=== PATIENT | female | born 1970 | race Caucasian/White ===

== ENCOUNTER 2023-11-29 18:40 | Emergency (ER) | payer BC ==
[~2023-11-29] VITALS: Ht 160 cm; Wt 61.2 kg
[2023-11-29] MEDS ORDERED: NEOMY/BACITRA/POLYMYXIN B OINT UD PACKET TP ONE (19:30)
[2023-11-29] MEDS: NEOMY/BACITRA/POLYMYXIN B OINT UD PACKET TP ONE (19:46)
[2023-11-29] MEDS ORDERED: TDAP DIPH,PERTUSS,TET VAC/PF 0.5 ML DISP.SYRIN IM ONE (19:48)
[2023-11-29] MEDS: TDAP DIPH,PERTUSS,TET VAC/PF 0.5 ML DISP.SYRIN IM ONE (19:52)
[2023-11-29 19:53] VITALS: BP 120/80; TEMP 98; O2SAT 99
== END 2023-11-29 19:53 | disposition home or self-care (01) ==
LOC: ER 18:42
DX: S80.02XA Contusion of left knee, initial encounter (principal); Z98.890 Other specified postprocedural states; X58.XXXA Exposure to other specified factors, initial encounter; Y93.89 Activity, other specified; Y92.89 Other specified places as the place of occurrence of the external cause; Y99.8 Other external cause status
CPT/HCPCS: 90715; A4606; A4663